=== PATIENT | male | born 1935 | race Caucasian/White ===

== ENCOUNTER 2023-10-31 13:34 | Outpatient (CLI) | payer MEDICARE | END 2023-10-31 13:35 | disposition home or self-care (01) | LOC: SCSRAD 13:34 | PROVIDERS: ATTEND Nurse Practitioner Family | DX: S69.92XA Unspecified injury of left wrist, hand and finger(s), initial encounter (principal); S69.91XA Unspecified injury of right wrist, hand and finger(s), initial encounter; S62.300A Unspecified fracture of second metacarpal bone, right hand, initial encounter for closed fracture; M18.12 Unilateral primary osteoarthritis of first carpometacarpal joint, left hand ==